=== PATIENT | female | born 1970 | race Caucasian/White ===

== ENCOUNTER → 2018-03-11 | Outpatient (CLI) | payer BC ==
[~2018-03-11] MED LIST: AMLO5TAB10 PO; CELE200C PO; CLON0.5T11 PO; DOCU-109 PO; GABA600T7 PO; INDA2.5T PO; LEVO112C PO; METH750T2 PO; NAPR-514 PO; OMEP40CA5 PO; OXYC1TAB15 PO; TRAM50TA PO
--- NOTE | 2018-03-18 12:09 | RAD ---
PQRS Compliance Statement: One or more of the following individualized dose reduction techniques were utilized for this examination: 1. Automated exposure control 2. Adjustment of the mA and/or kV according to patient size 3. Use of iterative reconstruction technique Lumbar spine without contrast March 18, 2018 INDICATION: Spondylolisthesis. Lumbar stenosis with neurogenic claudication radiculopathy. COMPARISON: None available TECHNIQUE: Multiple axial CT images of the lumbar spine were obtained without intravenous contrast. Coronal and sagittal reformats are provided. FINDINGS: There is grade 1 anterolisthesis of L4 on L5. No significant spondylolisthesis is identified. Vertebral body heights are maintained. There is mild disc height loss at L4-L5 and L5-S1. Endplate sclerosis and remodeling is noted at L5-S1. Mild anterior marginal osteophytosis is noted throughout the lumbar spine, most prominent at L3-L4. Abdominal aorta is normal in course and caliber with mild calcified atheromatous plaque. There are no pathologically enlarged lymph nodes in the visualized retroperitoneum. Visualized portions of the kidneys appear normal. Urinary bladder is within normal limits given degree of distention. There is mild ankylosis of the mid posterior right sacroiliac joint. L1-L2: Disc is normal in configuration. There is no significant facet arthropathy. No neuroforaminal or spinal canal stenosis. L2-L3: Disc is normal in configuration. There is mild facet arthropathy. There is no significant neuroforaminal or spinal canal stenosis. L3-L4: There is mild disc bulge. There is mild facet arthropathy. There is mild bilateral neuroforaminal stenosis. No spinal canal stenosis. L4-L5: There is a moderate circumferential disc bulge. There is moderate to severe facet arthropathy. There is ligamentum flavum infolding. There is severe bilateral neuroforaminal stenosis. Moderate to severe spinal canal stenosis. L5-S1: There is a disc bulge with central disc protrusion containing calcification. There is moderate facet arthropathy. There is moderate bilateral neuroforaminal stenosis. No significant spinal canal stenosis. IMPRESSION: Mild to moderate degenerative changes of the lumbar spine, as described in detail above. There is grade 1 anterolisthesis of L4 on L5, likely secondary to degenerative facet arthropathy. There is partial ankylosis of the posterior mid right sacroiliac joint. Electronically signed by: Ellie Diaz MD (03/18/2018 12:05 PM) [facility]
== END | disposition home or self-care (01) ==
LOC: SURGPAT 13:24
PROVIDERS: ATTEND Neurological Surgery
DX: Z01.818 Encounter for other preprocedural examination (principal); M43.16 Spondylolisthesis, lumbar region; M48.062 Spinal stenosis, lumbar region with neurogenic claudication; M54.16 Radiculopathy, lumbar region; Z88.0 Allergy status to penicillin
CPT/HCPCS: 36415; 87641

== ENCOUNTER 2018-03-19 07:54 | Inpatient (IN) | payer BC ==
[2018-03-19] VITALS (7 sets, daily range): BP systolic 94–118; BP diastolic 58–75
[~2018-03-19] VITALS: Ht 170.2 cm; Wt 84.4 kg
[~2018-03-19 07:54] MED LIST changes: -AMLO5TAB10 PO; +AMLO5TAB7 PO; +BACITRACIN 50,000 UNIT in IV NORMAL SALINE 1000ML BAG 1,000 ML IRR ONE; -DOCU-109 PO; +GABA600T2 PO; -GABA600T7 PO; -METH750T2 PO; -OXYC1TAB15 PO
[2018-03-19] MEDS ORDERED: PROPOFOL 100 ML IV ONE (08:33)
[2018-03-19] MEDS: IV RINGERS,LACTATED 1000ML 1,000 ML IV SCH ×2 (08:35→22:05)
[2018-03-19] MEDS ORDERED: IV RINGERS,LACTATED 1000ML 1,000 ML IV SCH (08:37)
[2018-03-19] MEDS ORDERED: HYDROmorphone 2 MG/ML VIAL IV PRN (08:45)
[2018-03-19] MEDS ORDERED: fentaNYL PF VIAL 100 MCG/2 ML VIAL IV PRN ×2 (08:45→13:30)
[2018-03-19] MEDS ORDERED: LIDOCAINE 1% PF 2 ML VIAL. ID PRN (08:45)
[2018-03-19] MEDS ORDERED: PROCHLORPERAZINE 10 MG/2 ML VIAL. IV PRN (08:45)
[2018-03-19] MEDS ORDERED: ONDANSETRON PF 4 MG/2 ML VIAL. IV PRN ×2 (08:45→13:30)
[2018-03-19] MEDS ORDERED: VANCOMYCIN 1GM IVPB FOR OMNI 250 ML IV PRN (09:00)
[2018-03-19] MEDS ORDERED: PHENYLEPHRINE in 0.9% NACL PF 1 MG/10 ML SYRINGE. IV ONE (10:09)
[2018-03-19] MEDS ORDERED: THROMBIN TOPICAL 20,000 UNIT SPRAY.SYRN KIT TP ONE (10:12)
[2018-03-19] MEDS ORDERED: GELATIN SPONGE SIZE 100. TP ONE (10:12)
[2018-03-19] MEDS ORDERED: BUPIVAC MPF-EPI 0.5%-1:200000 30 ML VIAL. INJ ONE (10:12)
[2018-03-19] MEDS ORDERED: KETOROLAC 60 MG/2 ML INJ FOR OR. INJ ONE (10:12)
[2018-03-19] MEDS ORDERED: oxyCODONE/APAP 5/325 1 TAB TABLET PO PRN (13:30)
[2018-03-19] MEDS ORDERED: MAG HYDROX/ALUMINUM HYD/SIMETH 30 ML ORAL.SUSP PO PRN (13:30)
[2018-03-19] MEDS ORDERED: MAGNESIUM HYDROXIDE 2,400 MG/30 ML ORAL.SUSP. PO PRN (13:30)
[2018-03-19] MEDS ORDERED: diphenhydrAMINE HCL 25 MG CAPSULE PO PRN (13:30)
[2018-03-19] MEDS ORDERED: ZOLPIDEM 5 MG TABLET. PO PRN (13:30)
[2018-03-19] MEDS ORDERED: NALOXONE 0.4 MG/ML VIAL. IV PRN (13:30)
[2018-03-19] MEDS ORDERED: 0.9 % SODIUM CHLORIDE 10 ML DISP.SYRIN. IV PRN (13:30)
[2018-03-19] MEDS ORDERED: CALCIUM CARBONATE 500 MG TAB.CHEW PO PRN (13:30)
[2018-03-19] MEDS ORDERED: traMADol 50 MG TABLET PO PRN ×2 (13:30→23:15)
[2018-03-19] MEDS ORDERED: ACETAMINOPHEN 325 MG TABLET. PO PRN (13:30)
[2018-03-19] MEDS: fentaNYL PF VIAL 100 MCG/2 ML VIAL IV PRN ×3 (15:45→16:53)
[2018-03-19] MEDS ORDERED: MORPHINE SULFATE 4 MG/ML VIAL. ONE (15:53)
[2018-03-19] MEDS: MORPHINE SULFATE 4 MG/ML VIAL. IV PRN ×2 (15:58→16:11)
--- NOTE | 2018-03-19 16:25 | NUR ---
Arrived to unit by bed from PACU. Alert and oriented x's 4. Lower back incisions x's 3 intact with middle dressing has some shadowing. Able to move all extremities easily. IVF's intact and infusing. O2 at 2l per n/c. MOLLY's and FARSHAD's on bilaterally. Oriented to room and controls. Side rails up x's 2 with call light in reach. Spouse at bedside. Cont. monitor.
[2018-03-19] MEDS ORDERED: NAPROXEN 250 MG TABLET PO PRN (16:45)
[2018-03-19] MEDS: METHOCARBAMOL 750 MG TABLET PO SCH ×2 (17:01→20:50)
[2018-03-19] MEDS: POTASSIUM CL 20MEQ D5-0.45NACL 1,000 ML IV SCH (17:01)
--- NOTE | 2018-03-19 17:30 | NUR ---
Sat on edge of bed for dinner. Noted moderate drainage noted. Dressing reinforced with ABD and hypofix tape. Cont. monitor.
[2018-03-19] MEDS: oxyCODONE/APAP 5/325 1 TAB TABLET PO PRN (19:26)
[2018-03-19] MEDS: DOCUSATE SODIUM 100 MG CAPSULE. PO SCH (20:50)
[2018-03-19] MEDS: GABAPENTIN 300 MG CAPSULE. PO SCH (20:51)
[2018-03-19] MEDS: clonazePAM 0.5 MG TABLET PO SCH (20:57)
[2018-03-19] MEDS ORDERED: VANCOMYCIN 1 GM in IV DEXTROSE 5% 250 ML IV ONE (22:00)
[2018-03-20] MEDS: traMADol 50 MG TABLET PO PRN ×2 (00:25→04:29)
[2018-03-20] MEDS: POTASSIUM CL 20MEQ D5-0.45NACL 1,000 ML IV SCH (02:41)
[2018-03-20 03:00] VITALS: BP 100/62
[2018-03-20] MEDS ORDERED: LEVOTHYROXINE 112 MCG TABLET PO SCH (06:00)
[2018-03-20] MEDS: oxyCODONE/APAP 5/325 1 TAB TABLET PO PRN ×2 (06:36→14:14)
[2018-03-20 06:42] VITALS: BP 96/87
[2018-03-20] MEDS: GABAPENTIN 300 MG CAPSULE. PO SCH ×2 (08:11→14:00)
[2018-03-20] MEDS: DOCUSATE SODIUM 100 MG CAPSULE. PO SCH (08:11)
[2018-03-20] MEDS: clonazePAM 0.5 MG TABLET PO SCH (08:11)
[2018-03-20] MEDS: METHOCARBAMOL 750 MG TABLET PO SCH ×2 (08:11→14:14)
[2018-03-20] MEDS ORDERED: INDAPAMIDE 2.5 MG TABLET PO SCH (09:00)
[2018-03-20] MEDS ORDERED: amLODIPine BESYLATE 5 MG TABLET PO SCH (09:00)
--- NOTE | 2018-03-20 12:18 | DISCH ---
DISCHARGE INSTRUCTIONS Condition on Discharge Condition on Discharge: Stable Activity After Discharge Activity Instructions for Disc: Activity as tolerated, Avoid exertion, Progressive ambulation Other activity instructions: Do not drive for one week Bathing Instructions: Shower-keep dressing dry, No Tub Bath until see Lifting Instructions after Dis: No heavy lifting, No pulling or pushing, Do not lift >10 pounds Exercise Instruction after Dis: Exercise per therapy, Progress as tolerated Diet after Discharge Diet after Discharge: Regular Additional Diet Restrictions: resume home diet Wound Incision Care Wound/Incision Care: Ice to area for comfort, Keep wound/cast CDI, Change dressing, Reinforce dressing PRN Other wound/incision instructi: Change dressing as needed and remove in 3 to 4 days when at home. Wound Care Equipment: Dressings Checks after Discharge Checks after discharge: Check blood press - daily Contacting the after DC Call your doctor for: Concerns you may have Follow-Up Follow Up With: Dr Brown's nurse in 10-14 days [phone] MARINA BROWN MD Mar 20, 2018 12:18
[2018-03-20] MEDS ORDERED: DOCU-109 PO (12:21)
[2018-03-20] MEDS ORDERED: METH750T2 PO (12:21)
[2018-03-20 13:47] VITALS: BP 106/79
[2018-03-20] MEDS ORDERED: OXYC1TAB15 PO (13:56)
--- NOTE | 2018-03-20 14:17 | NUR ---
Patient left the facility around 1415 with her in a wheelchair with all her belongings. Discharge education completed by this nurse, PT, OT, and Dr Shane. LSO brace to be fitted and given to the patient at her follow up appointment. Incision care instructions given to the patient as well as her and extra dressings were given to them for proper dressing changes. IV discontinued without complications prior to discharge. No concerns noted upon discharge.
--- NOTE | 2018-03-22 18:08 | PATHOLOGY ---
[facility] Accession Number: [id number] . 01 Material submitted: . LUMBAR DECOMPRESSION AND DISC . 01 Clinical history: . Spondylolisthesis, stenosis and neurogenic claudication, radiculopathy . 02 Diagnosis: Segments of fibrocartilaginous, fibroadipose, and skeletal muscle tissue and bone, lumbar decompression and disc: - Degenerative changes of fibrocartilaginous tissue. . (JPM:mml; 03/22/2018) [facility]/03/22/2018 . 02 Comment: There is no evidence of an acute inflammatory process or malignancy. . (JPM:mml; 03/22/2018) . 02 Electronically signed: . Jorge Salguero MD, Pathologist NPI- [id number] . 01 Gross description: . Received in formalin labeled "Citlalli Rivers, lumbar decompression and disc," are several pieces of glistening, fibrous tissue measuring 5.1 x 3.9 x 1.9 cm in aggregate dimensions, containing small fragments of bone. The tissue submitted representatively in cassette A1, following decalcification. (TSD; 03/20/2018) TOB/TOB . 02 Pathologist provided ICD-10: M51.36 . 02 CPT . 727925, [id number] Specimen Comment: A courtesy copy of this report has been sent to Specimen Comment: [phone]. Specimen Comment: Report sent to Performed at: 01 [facility] [address], [place] [id number] MD George Kaur MD Phone: [phone] Performed at: 02 [facility] [address] [place], [place] [id number] MD Jorge Salguero MD Phone: [phone]
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
== END 2018-03-20 14:15 | disposition home or self-care (01) | DRG 455 ==
LOC: OPSVCIP 07:54 → 4 SOUTHEST 16:25
PROVIDERS: ADMIT Neurological Surgery; ATTEND Neurological Surgery
PROC: 0SG00AJ Fusion of Lumbar Vertebral Joint with Interbody Fusion Device, Posterior Approach, Anterior Column, Open Approach (ICD-10-PCS; 2018-03-19)
PROC: 0SB20ZZ Excision of Lumbar Vertebral Disc, Open Approach (ICD-10-PCS; 2018-03-19)
PROC: 4A11X4G Monitoring of Peripheral Nervous Electrical Activity, Intraoperative, External Approach (ICD-10-PCS; 2018-03-19)
PROC: 07DR3ZZ Extraction of Iliac Bone Marrow, Percutaneous Approach (ICD-10-PCS; 2018-03-19)
PROC: 0SG0071 Fusion of Lumbar Vertebral Joint with Autologous Tissue Substitute, Posterior Approach, Posterior Column, Open Approach (ICD-10-PCS; principal; 2018-03-19 08:30)
DX: M43.16 Spondylolisthesis, lumbar region (principal); M48.061 Spinal stenosis, lumbar region without neurogenic claudication
CPT/HCPCS: 36415; 76000; 88304; 88311; A7015; C1713; J1885; J2270; J2370; J2704; J3010; J3370; J3490; J7030; J7120